=== PATIENT | female | born 1945 | race African-American/Black ===

== ENCOUNTER 2019-09-13 11:46 | Emergency (ER) | payer OTHER ==
[~2019-09-13] VITALS: Ht 165.1 cm; Wt 108.9 kg
[2019-09-13] MEDS ORDERED: NORVASC5 MG PO (11:53)
[2019-09-13] MEDS ORDERED: HYDROXYZINE HCL25 M2 PO (11:54)
[2019-09-13] MEDS ORDERED: LISINOPRIL-HCT1 EAC2 PO (11:54)
[2019-09-13] MEDS ORDERED: PREDNISONE 20 M20 M1 PO (11:55)
[2019-09-13] MEDS ORDERED: TRAMADOL 50 MG50 MG PO (11:55)
[2019-09-13] MEDS ORDERED: ZYRTEC10 M2 PO (12:32)
[2019-09-13] MEDS ORDERED: PREDNISONE 20 M20 MG PO (12:32)
[2019-09-13] MEDS ORDERED: ZANTAC 150MG T150 M1 PO (12:32)
[2019-09-13 12:50] VITALS: BP 129/81
== END 2019-09-13 12:50 | disposition home or self-care (01) ==
LOC: ER 11:46
DX: L27.0 Generalized skin eruption due to drugs and medicaments taken internally (principal); T50.995A Adverse effect of other drugs, medicaments and biological substances, initial encounter; I10 Essential (primary) hypertension; Y92.89 Other specified places as the place of occurrence of the external cause

== ENCOUNTER 2020-10-07 20:09 | Inpatient (IN) | payer OTHER ==
[~2020-10-07] VITALS: Ht 165.1 cm; Wt 103.4 kg
[~2020-10-07 20:09] MED LIST: HYDROXYZINE HCL25 M2 PO; LISINOPRIL-HCT1 EAC2 PO; NORVASC5 MG PO; PREDNISONE 20 M20 M1 PO; PREDNISONE 20 M20 MG PO; TRAMADOL 50 MG50 MG PO; ZANTAC 150MG T150 M1 PO; ZYRTEC10 M2 PO
[2020-10-07 20:10] VITALS: BP 149/103
[2020-10-07 21:15] LABS: ABSOLUTE NEUTROPHILS 1.5 thou/uL (1.4-8.2); BASOPHILS 0.5 % (0.0-2.0); EOSINOPHILS 0.1 % (0.0-3.0); HEMATOCRIT 41.5 % (37.0-47.0); HEMOGLOBIN 14.1 gm/dL (12.0-15.0); LYMPHOCYTES 38.8 % (24.0-44.0); MCHC 33.9 g/dL (28.0-37.0); MCV 88.5 fL (80.0-100.0); PLATELET COUNT 175 thou/uL (150-400); POLYS 49.6 % (36.0-66.0); RBC 4.69 mil/uL (4.20-5.00); RDW 14.7 % (10.5-14.5); WBC 3.1 thou/uL (4.0-11.0)
[2020-10-07 21:17] LABS: BE(vivo) 0.8 mmol/L (-2 to +3); HCO3 23.3 mmol/L (22.0-26.0); PCO2 31.3 mmHg (35.0-45.0); PO2 78.6 mmHg (80.0-100.0); pH 7.489 (7.360-7.450); sO2 96.6 % (92.0-98.0)
[2020-10-07 21:39] LABS: ALBUMIN 3.5 g/dL (3.4-5.0); ANION GAP 10 mmol/L (7-16); CALCIUM 8.9 mg/dL (8.5-10.1); CHLORIDE 97 mmol/L (98-107); CO2 27 mmol/L (21-32); CREATININE 1.1 mg/dL (0.6-1.0); GLUCOSE 108 mg/dL (74-106); SGOT 58 U/L (15-37); SGPT 79 U/L (14-59); SODIUM 134 mmol/L (136-145); TOTAL BILIRUBIN 0.5 mg/dL (0.2-1.0); TOTAL PROTEIN 8.2 g/dL (6.4-8.2); TROPONIN-I <0.06 ng/mL (<0.06)
[2020-10-07 21:41] LABS: POTASSIUM 2.8 mmol/L (3.5-5.1)
[2020-10-07 21:47] LABS: BUN 17 mg/dL (7-18)
[2020-10-07 22:55] VITALS: BP 138/84
[2020-10-07 23:00] VITALS: BP 138/84
[2020-10-07 23:29] VITALS: BP 141/57
--- NOTE | 2020-10-08 00:39 | NUR ---
PT ADMITTED FROM HOME THROUGH ED. PT REPORTED HAVING RECENT SINUS PROBLEMS AND INCREASING HER GREEN TEA INTAKE, THIS IS WHAT SHE THINKS DECREASED HER POTASSIUM. LUNGS DIMINISHED IN THE BASES. PT REPORTS INCREASE IN SOA AND FEVER. O2 PER NC 3L, PT USING AT HS, AT HOME USES CPAP. PT TESTED FOR COVID IN ED. PT DENIES RECENT EXPOSURE TO COVID. PT STATED SHE HAS HAD THE FLU AND PNEUMONIA VACCINE SO SHE DOES NOT UNDERSTAND HOW SHE CAN HAVE PNEUMONIA. 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 PT QUIT SMOKING TWO YEARS AGO. PT IS INDEPENDENT WITH AMBULATION, PT EDUCATED TO CALL FOR ASSISTANCE WITH IV POLE.
--- NOTE | 2020-10-08 00:45 | NUR ---
PT REPORTS IV POTASSIUM BURNING, RATE SIGNIFICANTLY DECREASED SO THAT PT IS COMFORTABLE.
--- NOTE | 2020-10-08 03:47 | NUR ---
PTS COVID TEST IS NEGATIVE, PROVIDER AND MEDICAL ONCOLOGIST NOTIFIED. PT WILL BE NOTIFIED WHEN SHE AWAKENS.
[2020-10-08 04:21] VITALS: BP 113/83
[2020-10-08 05:23] LABS: HEMATOCRIT 41.4 % (37.0-47.0); HEMOGLOBIN 13.8 gm/dL (12.0-15.0); MCH 30.1 pg (26.0-34.0); MCHC 33.3 g/dL (28.0-37.0); MCV 90.3 fL (80.0-100.0); RBC 4.59 mil/uL (4.20-5.00); WBC 2.1 thou/uL (4.0-11.0)
[2020-10-08 05:40] LABS: CALCIUM 8.5 mg/dL (8.5-10.1); CREATININE 1.2 mg/dL (0.6-1.0); POTASSIUM 3.2 mmol/L (3.5-5.1)
[2020-10-08 07:15] VITALS: BP 126/79
[2020-10-08 08:58] LABS: URINE BILIRUBIN NEGATIVE (Negative); URINE BLOOD NEGATIVE (Negative); URINE CLARITY CLEAR; URINE COLOR YELLOW; URINE GLUCOSE-RANDOM* NEGATIVE (Negative); URINE KETONES TRACE (Negative); URINE LEUKOCYTES-REFLEX NEGATIVE (Negative); URINE NITRITE-REFLEX NEGATIVE (Negative); URINE PROTEIN (DIPSTICK) NEGATIVE (Negative); URINE SPECIFIC GRAVITY >= 1.030 (1.005-1.035); URINE UROBILINOGEN 0.2 E.U./dl (0.2-1.0)
[2020-10-08 15:33] VITALS: BP 140/83
--- NOTE | 2020-10-08 17:10 | NUR ---
Patient transferred from [facility] this afternoon; transferred to bed safely. A+Ox4. On room air during daytime at O2 at 3lpm via nasal cannula at HS. On telemetry; no complains and signs of chest pain, crushing sensation and heaviness. On heart healthy diet- tolerating well; no nausea, no vomiting and no abdominal pain noted. Continent of bowel and bladder, able to go to the toilet with standby assist. With SL at L AC- intact. No complains of pain made during assessment. Assisted in ADLs. Pt complained of headache- PRN medication given as prescribed. Checked patient's potassium today 3.2- Dr Wen informed, for onetime PO potassium correction, no need for repeat lab today. To continue monitoring patient.
--- NOTE | 2020-10-09 01:58 | NUR ---
VSS-AFEBRILE. LUNGS CLEAR-ROOM AIR. RESTED WELL THROUGH NIGHT WITH CPAP IN PLACE. NO C/O PAIN. OOB AD WARNER-STEADY ON FEET. CALLS APPROPRIATELY FOR ANY NEEDED ASSISTANCE.
[2020-10-09 03:43] VITALS: BP 128/77
[2020-10-09 08:39] VITALS: BP 127/77
[2020-10-09 10:05] LABS: CALCIUM 8.6 mg/dL (8.5-10.1); CREATININE 1.1 mg/dL (0.6-1.0); POTASSIUM 4.1 mmol/L (3.5-5.1)
[2020-10-09 10:06] LABS: MAGNESIUM 2.5 mg/dL (1.8-2.4)
[2020-10-09 11:02] LABS: HEMATOCRIT 40.2 % (37.0-47.0); HEMOGLOBIN 13.2 gm/dL (12.0-15.0); MCH 29.9 pg (26.0-34.0); MCHC 32.8 g/dL (28.0-37.0); MCV 91.2 fL (80.0-100.0); RBC 4.41 mil/uL (4.20-5.00); RDW 15.2 % (10.5-14.5); WBC 4.6 thou/uL (4.0-11.0)
--- NOTE | 2020-10-09 15:38 | NUR ---
ASSUMED CARE OF PATIENT AFTER REPORT. ASSESSMENT CHARTED. MEDS ADMINISTERED PER EMAR. VSS. PATIENT IS A&OX4 AND MAKES NEEDS KNOWN. DENIED PAIN AT TIME OF ASSESSMENT. PATIENT REQUESTED TO SHOWER TODAY. SET UP W SUPERVISION AND TOLERATED WELL. REMAINS ON ROOM AIR. LUNGS REMAIN CLEAR. PATIENT DID HAVE AN EPISODE OF ANXIETY/CRYING D/T [facility] ALTERCATION IN THE EMERGENCY DEPARTMENT GREETING STATION. [facility] WAS ENTERED IN 1 AND SOLE DESIGNATED VISITOR BY THIS NURSE AND WAS NOT YET ON PRINTED LIST FROM THIS A.M. PUBLIC SAFETY ARRIVED AND SPOKE TO PATIENT WHICH INDUCED ANXIETY AND CRYING. PATIENT APPEARING TO MAKE MEDICAL PROGRESS. FALL PRECAUTIONS IN PLACE. WILL CONTINUE TO MONITOR
[2020-10-09 20:33] VITALS: BP 139/88
--- NOTE | 2020-10-10 04:23 | NUR ---
ASSUMED CARE OF PT AT 1900HRS. PT AOX4 AND LETS NEEDS BE KNOWN. PT IS UP AD WARNER. ABX TREATMENT CONTINUED. OT SUPPOSITORY LAXATIVE GIVEN AND [place] HAD A BM. ASSESSMENT CHARTED. PT RAN SR ON TELE. PT DENIED PAIN OR NAUSEA. ASSESSMENT CHARTED. PT WAS ABLE TO GET COMFORTABLE AND SLEEP PART OF THE SHIFT. VSS AND NO S/S OF ACUTE DISTRESS. WILL CONTINUE TO MONITOR.
[2020-10-10 05:12] LABS: HEMATOCRIT 41.2 % (37.0-47.0); HEMOGLOBIN 13.5 gm/dL (12.0-15.0); MCH 29.5 pg (26.0-34.0); MCHC 32.6 g/dL (28.0-37.0); MCV 90.5 fL (80.0-100.0); RBC 4.56 mil/uL (4.20-5.00); RDW 15.5 % (10.5-14.5); WBC 8.2 thou/uL (4.0-11.0)
[2020-10-10 05:21] LABS: CALCIUM 8.4 mg/dL (8.5-10.1); CREATININE 1.1 mg/dL (0.6-1.0); MAGNESIUM 1.9 mg/dL (1.8-2.4); POTASSIUM 3.5 mmol/L (3.5-5.1)
--- NOTE | 2020-10-10 07:23 | EKG ---
[address] [place] [address] ELECTROCARDIOGRAM REPORT Name: LUISANA BAUTISTA Room #: 459-P ADM IN M.R.#: [id number] Admission: 10/07/20 Attend Phys: Joshua Quiles MD Discharge: Date of : 47 Report #: [id number] [facility] ED Test Date: 2020-10-07 Test Time: 20:44:04 Pat Name: LUISANA BAUTISTA Department: Room: 45 Gender: F Dairy Management Specialist: MPAGARY : [id number] Requested By: Aimee Melo Order Number: [id number] MD: Mauricio Pedroza Measurements Intervals [place] Rate: 94 P: 63 WA: 158 QRS: -5 QRSD: 86 T: 30 QT: 354 QTc: 443 Interpretive Statements Sinus rhythm Abnormal R-wave progression, late transition Nonspecific ST segment abnormality Baseline wander in lead(s) I,III,aVR,aVL,aVF,V3,V4 Compared to ECG 01/02/2008 23:19:42 Fusion complex(es) no longer present Electronically Signed On 10-10-2020 7:23:27 [employer] CHAIR by Mauricio Pedroza [email or web address] <ELECTRONICALLY SIGNED> By: Mauricio Pedroza MD, [facility] 10/10/20722 43 43 Mauricio Pedroza MD, [facility] /EPI
--- NOTE | 2020-10-10 10:00 | NUR ---
chart review. cm visited with marlene at bedside. cm cont to wear face mask and shield at visit. marlene a & o x 3 pleasant and able to make her needs know. intro to cm and dcp. she possible going for aspiration today. she reported " live alone in apartment. [address] in [place]. [address] floor. no step to enter or inside. there is an elevator. independent when feeling ok. have cpap, manage own medication. still drive, try not to drive on highway if possible. been to [facility] rehab long while ago. have 1st access through medicaid weekly."/marlene. agreeable to hh if needed. will cont following as needed for dc needs.
--- NOTE | 2020-10-10 18:08 | NUR ---
ASSUMED CARE OF PATIENT AT SHIFT CHANGE. ASSESSMENT CHARTED. MEDICATION ADMINISTERED PER EMAR. BP ELEVATED BUT STABLIZED AFTER BP MEDS ADMINSTERED. PATIENT IS A&OX4 AND MAKES NEEDS KNOWN. C/O NAUSEA AND DIZZINESS. LUNG SOUNDS W SOME WHEEXING AGAIN. PROVIDER D/C'd STEROIDS TO REDUCE SIDE EFFECTS. PATIENT PROVIDED PRINTED INFO ON ZINC SUPPLEMENT WHICH COULD POSSIBLY BE CAUSING NAUSEA. PATIENT VOICES STRESS INCONTINENCE. HR TACHY THIS SHIFT, APPEARING ANXIOUS W TREMORS. PROVIDER NOTIFIED. SPOKE TO DTR THIS DAY AND PROVIDED UPDATES. PATIENT EDUCATED ON FALL PRECAUTIONS. WILL CONTINUE TO MONITOR AND ENDORSE TO NOC RN
[2020-10-10 19:53] VITALS: BP 131/75
--- NOTE | 2020-10-11 02:37 | NUR ---
PT CARE ASSUMED WITH PT IN CHAIR RESTING.PT IS A/O X4.PT IS UP WITH STANDBY ASSIST BECAUSE OF OCCASIONAL DIZZINESS.PT IS ON 2L O2 AND USES A CPAP AT NIGHT.PT DAUGHTER CALLED FOR UPDATES AND ALSO CALLED PT TO SPEAK WITH HER.PT WAS TAKEN DOWN TO RADIOLOGY FOR XRAY.PT ALSO ON BREATHING TREATMENT.PT HAD TEMPERATURE OF 102.0 AND WAS GIVEN TYLENOL WITH RELIEF TO 98.3.PT SAYS SHE FEELS MUCH BETTER .WILL CONTINUE TO MONITOR
[2020-10-11 05:43] LABS: MCH 29.9 pg (26.0-34.0); MCHC 33.4 g/dL (28.0-37.0); MCV 89.7 fL (80.0-100.0); RBC 4.35 mil/uL (4.20-5.00); RDW 15.5 % (10.5-14.5); WBC 6.4 thou/uL (4.0-11.0)
[2020-10-11 06:18] LABS: CALCIUM 8.4 mg/dL (8.5-10.1); CREATININE 1.2 mg/dL (0.6-1.0); MAGNESIUM 2.1 mg/dL (1.8-2.4); POTASSIUM 3.6 mmol/L (3.5-5.1)
[2020-10-11 06:53] LABS: URINE BILIRUBIN NEGATIVE (Negative); URINE BLOOD NEGATIVE (Negative); URINE CLARITY CLEAR; URINE COLOR YELLOW; URINE GLUCOSE-RANDOM* NEGATIVE (Negative); URINE KETONES NEGATIVE (Negative); URINE LEUKOCYTES NEGATIVE (Negative); URINE NITRITE NEGATIVE (Negative); URINE PROTEIN (DIPSTICK) TRACE (Negative); URINE SPECIFIC GRAVITY >= 1.030 (1.005-1.035); URINE UROBILINOGEN 0.2 E.U./dl (0.2-1.0)
[2020-10-11 08:38] VITALS: BP 135/90
--- NOTE | 2020-10-11 15:15 | NUR ---
Temperature 99.8, Dr. Hagan has been reported to. will check BP soon.
[2020-10-11 15:57] VITALS: BP 152/90
[2020-10-12 00:48] VITALS: BP 108/71
--- NOTE | 2020-10-12 02:52 | NUR ---
ASSUMED PT CARE AT SHIFT CHANGE. PT IS A&OX4. PT'S O2 IS 89 WHILE ON OXYGEN. TURNED UP THE O2 FOR COMFORT. RE CHECKED IN THE 0000 HOUR. VSS. PT DOES SHOW SIGNS OF SHORTNESS OF BREATH WHEN WALKING. PT DENIES AND PAIN AND DENIES THAT SHE IS STRUGLING TO BREATH. PT DENIES N/V/D. PT IS CURRENTLY SLEEPING. HOURLY ROUNDING DONE. WILL CONTINUE TO MONITOR.
[2020-10-12 05:46] LABS: BASOPHILS 0.5 % (0.0-2.0); HEMOGLOBIN 12.3 gm/dL (12.0-15.0)
[2020-10-12 05:50] LABS: ABSOLUTE NEUTROPHILS 4.8 thou/uL (1.4-8.2); EOSINOPHILS 0.8 % (0.0-3.0); HEMATOCRIT 36.9 % (37.0-47.0); LYMPHOCYTES 12.2 % (24.0-44.0); MCHC 33.3 g/dL (28.0-37.0); MCV 90.2 fL (80.0-100.0); MONOCYTES 4.8 % (1.0-8.0); PLATELET COUNT 168 thou/uL (150-400); POLYS 81.7 % (36.0-66.0); RBC 4.09 mil/uL (4.20-5.00); RDW 15.4 % (10.5-14.5); WBC 7.6 thou/uL (4.0-11.0)
[2020-10-12 05:55] LABS: CALCIUM 8.2 mg/dL (8.5-10.1); CREATININE 1.2 mg/dL (0.6-1.0); MAGNESIUM 2.2 mg/dL (1.8-2.4); POTASSIUM 3.8 mmol/L (3.5-5.1)
[2020-10-12 07:33] VITALS: BP 119/74
[2020-10-12 15:56] VITALS: BP 116/72
--- NOTE | 2020-10-12 16:12 | NUR ---
PT IS PROGRESSING TOWARD GOAL OF DISCHARGE. PT IS ON 4L O2. 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 CM TO FOLLOW INDICATED WITH DC PLANNING.
[2020-10-12 16:36] LABS: ALBUMIN 2.5 g/dL (3.4-5.0); DIRECT BILIRUBIN 0.1 mg/dL (<0.1-0.2); TOTAL BILIRUBIN 0.3 mg/dL (0.2-1.0); TOTAL PROTEIN 6.5 g/dL (6.4-8.2)
--- NOTE | 2020-10-12 19:06 | NUR ---
Patient claimed she urinated once in the bathroom, the staff asked the patient to urinated in the bed commode, so her I& O can be monitored, the patient agreed. will pass this on to the night nurse. Patient claimed around noon that she felt better.
--- NOTE | 2020-10-12 19:41 | NUR ---
Patient asked for heart burn medication, will pass it on to the night nurse.
[2020-10-12 20:12] VITALS: BP 116/68
--- NOTE | 2020-10-13 04:09 | NUR ---
Pt. rested quietly at intervals during the night when checked on during frequent rounds. She took one sip of her gi cocktail for heartburn and then refused the rest. Scheduled pepcid given with relief of her heartburn. Po tylenol given for c/o headache (see emar) with relief noted. No c/o increased shortness of air. Tolerating c-pap at this time.
[2020-10-13 07:56] VITALS: BP 140/84
--- NOTE | 2020-10-13 11:52 | HC ---
[facility] [place] [address] [place] [address] CONSULTATION Name: LUISANA BAUTISTA Room #: 459-P ADM IN M.R.#: [id number] Admission: 10/07/20 Attend Phys: Ronny Wen MD Discharge: Date of : 47 Report #: [id number] THIS REPORT FOR: cc: Candace Thomas,Candace Fraire,Lars Parson MD ~ DATE OF SERVICE: 10/12/2020 INFECTIOUS DISEASE CONSULTATION ATTENDING PHYSICIAN: Dr. Wen. REASON FOR EVALUATION: Nonresolving pneumonia. HISTORY OF PRESENT ILLNESS: Chart reviewed, patient examined. This is a 74-year-old woman with history of hypertension, who presented to the Emergency Room on 10/07 with complaints of progressive dyspnea over the course of 48 hours prior with some fevers, chills, nausea, generalized myalgias, and had a nonproductive cough. Initial chest x-ray showed mild patchy medial bibasilar atelectasis, pneumonitis. She had a followup CT of the chest to rule out pulmonary embolus, did confirm mild cardiomegaly, peripheral interstitial opacities throughout both lungs. She was found to have negative COVID testing x 3. She was mildly leukopenic, this has improved. She has not been anemic. Platelet counts have been in the normal range. Influenza antigen testing was negative. Procalcitonin was less than 0.05. She empirically started on combination therapy with ceftriaxone and azithromycin. Currently, she is requiring supplemental oxygen 4 liters per nasal cannula, although she states she feels much improved over the course of the last 24 hours. Her encephalopathy has improved. She does continue to have some degree of activity, walking in the room and going to the bathroom, etc. Denies particular exposure history. ALLERGIES: None known. MEDICATIONS: Currently include levofloxacin, methylprednisolone, ipratropium and albuterol inhalers, guaifenesin, enoxaparin, lisinopril, amlodipine, ascorbic acid, famotidine, zinc, ondansetron as needed, and furosemide. PAST MEDICAL HISTORY: Includes hypertension, uses CPAP at night, obstructive sleep apnea, and history of shingles. SOCIAL HISTORY: Former smoker, occasional ethanol, no illicit drug use. FAMILY HISTORY: Noncontributory. [address] [address] CONSULTATION Name: LUISANA BAUTISTA Room #: [address] [place] [address] IN M.R.#: [id number] Admission: 10/07/20 Attend Phys: Ronny Wen MD Discharge: Date of : 47 Report #: [id number] REVIEW OF SYSTEMS: Otherwise, unremarkable. PHYSICAL EXAMINATION: GENERAL: She is alert, cooperative, appropriate, and in mild distress. VITAL SIGNS: Temperature 98.3, T-max overnight 99.2, pulse 94, respirations 18, and blood pressure 119/74. SKIN: Warm, dry, no rashes. HEENT: Normocephalic. Extraocular muscles are intact. Nasal cannula is in place. NECK: Supple. LUNGS: Somewhat diminished breath sounds. Few scattered crackles at the bases. HEART: Regular. I do not appreciate any murmur. ABDOMEN: Soft, nontender, nondistended. EXTREMITIES: No cyanosis. GENITOURINARY AND RECTAL: Deferred. LABORATORY DATA: CTA chest PE protocol, no evidence of PE, peripheral interstitial opacities, trace bilateral pleural effusion, no pneumothorax. ProBNP of 302. Electrolytes: Sodium 136, potassium 3, chloride 101, bicarbonate 25, anion gap of 10, BUN and creatinine 22 and 1.2, and glucose of 112. D-dimer is 1.38. CBC: White count of 7.6, H and H 12.3 and 36.9, and platelets of 168. Urinalysis is unremarkable. Sputum culture with growth of upper respiratory tract oswaldo. There is mildly elevated LFTs on admission. White count of 3.1 on admission, which is normalized. Coronavirus testing was negative on multiple occasions. ASSESSMENT: Pneumonitis, community-acquired, complicated by some suspect mild immune driven inflammatory changes. Continue current approach. She notes clinically feels better. Do additional diagnostic testing including some urinary antigen as well as some antibody testing, repeat liver function tests as well. Would consider noninfectious causes but as she is on corticosteroids, certainly ____ would expect resolution in the event of worsening, would consider adding doxycycline to cover additional atypicals. Discussed in detail with the patient. We will follow. Continue to monitor expectantly. Add incentive spirometry. Increase activity as allowed. <ELECTRONICALLY SIGNED> By: Lars Fraire MD 10/13/20 1152 [id number] Lars Fraire MD /nt
--- NOTE | 2020-10-13 15:24 | NUR ---
PT CONTINUES ON IV STEROIDS AND IV ABX. 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 CM FOLLOWING REGARDING DC PLANNING.
--- NOTE | 2020-10-13 16:50 | NUR ---
ASSUMED CARE OF PATIENT AT 0700. ASSESSMENT CHARTED. MEDICATIONS ADMINISTERED PER EMAR. VSS. PATIENT IS A&OX4 ON 4L NC. VOICES HEADACHE BUT REQUESTS TO REST INSTEAD OF MEDICATION MANAGEMEN. PATIENT RECIVED DOXYCYCLINE ON L FA BUT C/O LEAKING AROUND IV SITE. IV WAS DISCONTINUED. NEW IV ACCESS ON R WRIST; ABX RESUMED. PATIENT OOB W SBA AND SHOWERED INDEPENDENTLY. STATED THAT "WALKING AROUND WOULD HELP" WITH FEELING BETTER. NET PROGRAMMER ROUNDED ON PATIENT; SEE NOTES. APPETITE STILL PROBABLY INADEQUATE BUT IMPROVING. FALL PRECAUTIONS REMAIN IN PLACE. PATIENT ABLE TO VOICE NEEDS. WILL CONTINUE TO MONITOR AND FOLLOW PLAN OF CARE.
[2020-10-13 17:07] VITALS: BP 118/69
[2020-10-13 19:27] VITALS: BP 123/70
--- NOTE | 2020-10-14 03:27 | NUR ---
PT CARE ASSUMED WITH PT IN CHAIR RESTING.PT IS A/O X4.PT IS UP WITH STANDBY ASSIST TO THE RESTROOM OR BEDSIDE COMMODE.PT IS ON 4L OF O2 PER NC AND USES CPAP AT NIGHT.PT DENIED PAIN AND HAD NO TEMP OF THIS TIME.PT C/O NAUSEA WITH ZINC WHEN TAKEN IN THE MORNING ON AN EMPTY STOMACH.PT DENIED N/V.WILL CONTINUE TO MONITOR PER POC
[2020-10-14 07:00] VITALS: BP 121/67
--- NOTE | 2020-10-14 11:46 | NUR ---
Assess due length of stay. Admit with acute respiratory failure, pneumonia. Pt reports appetite has been down past week (<50%) but ate fairly well this morning and feels appetite is returning. Provided hospital menu and pt able to order own meals. Mild wt loss up to 6 lb which would suspect to cease. Does not like Ensure clear, will discontinue. Low nutrition risk
--- NOTE | 2020-10-14 14:45 | NUR ---
Assumed pt care this am, VS stable on 5L of O2 via NC 91% saturation noted, informed MD. Uses cpap at night, sputum collected. Daughter called Leidy for update from the MD number given to Dr. Martines. SOB lis noted on upon exertion. POC followed, no verbalizations of distress.
[2020-10-14 15:15] VITALS: BP 116/73
--- NOTE | 2020-10-14 15:52 | NUR ---
CARE TEAM INDICATED THAT PT IS SLOWLY PROGRESSING TOWARD GOAL OF DISCHARGE. PT CONTINUES ONM IV STEROIDS, IV ABX, AND O2 NEEDS HAVE INCREASED TO 5L. CARE TEAM INDICATED THAT PT WILL REMAIN HOSPITILIZED OVER THE WEEKEND. CM TO FOLLOW INDICATED WITH DC PLANNING.
[2020-10-14 20:20] VITALS: BP 140/82
--- NOTE | 2020-10-15 03:32 | NUR ---
PT CARE ASSUMED WITH PT IN CHAIR WATCHING TV.PT IS A/O X4.PT IS UP WITH STANDBY ASSIST TO THE RESTROOM OR BSC.PT IS ON 4L O2 VIA NC WITH SAT AT 91s.PT USES A CPAP AT NIGHT.WILL CONTINUE TO MONITOR
[2020-10-15 06:10] LABS: ABSOLUTE NEUTROPHILS 2.9 thou/uL (1.4-8.2); BASOPHILS 0.1 % (0.0-2.0); HEMATOCRIT 35.5 % (37.0-47.0); HEMOGLOBIN 11.8 gm/dL (12.0-15.0); LYMPHOCYTES 23.8 % (24.0-44.0); MCH 29.6 pg (26.0-34.0); MCHC 33.4 g/dL (28.0-37.0); MCV 88.7 fL (80.0-100.0); MONOCYTES 10.9 % (1.0-8.0); POLYS 65.2 % (36.0-66.0); RDW 15.1 % (10.5-14.5); WBC 4.4 thou/uL (4.0-11.0)
[2020-10-15 06:14] LABS: PLATELET COUNT 243 thou/uL (150-400)
[2020-10-15 06:43] LABS: ALBUMIN 2.5 g/dL (3.4-5.0); CALCIUM 8.5 mg/dL (8.5-10.1); CREATININE 0.8 mg/dL (0.6-1.0); MAGNESIUM 2.1 mg/dL (1.8-2.4); PHOSPHORUS 3.5 mg/dL (2.6-4.7); TOTAL BILIRUBIN 0.4 mg/dL (0.2-1.0); TOTAL PROTEIN 6.2 g/dL (6.4-8.2)
[2020-10-15 07:15] VITALS: BP 147/85
[2020-10-15 15:55] VITALS: BP 126/70
--- NOTE | 2020-10-15 17:13 | NUR ---
RN ASSUMED PT'S CARE AT 0700AM, PT IS A&OX3, PT IS ON O2 4L/MIN/NC, PT 'S VS ARE STABLE, PT IS CONTINUING IV ABX, PT GETS UP TO CHAIR , PT DENIES PAIN AND SOB AT THIS TIME.
--- NOTE | 2020-10-16 07:25 | NUR ---
VSS-AFEBRILE. LUNGS TIGHT, 4LNC. SOA WITH EXERTION. OOB AD WARNER-STEADY ON FEET. FALL PRECAUTIONS IN PLACE.
[2020-10-16 08:28] LABS: HEMATOCRIT 36.4 % (37.0-47.0); MCH 29.4 pg (26.0-34.0); MCV 89.3 fL (80.0-100.0); PLATELET COUNT 261 thou/uL (150-400); RBC 4.08 mil/uL (4.20-5.00); RDW 15.1 % (10.5-14.5); WBC 6.7 thou/uL (4.0-11.0)
[2020-10-16 08:30] VITALS: BP 133/75
[2020-10-16 09:05] LABS: CALCIUM 8.9 mg/dL (8.5-10.1); CREATININE 0.9 mg/dL (0.6-1.0); MAGNESIUM 1.9 mg/dL (1.8-2.4); PHOSPHORUS 3.4 mg/dL (2.6-4.7); POTASSIUM 3.6 mmol/L (3.5-5.1)
[2020-10-16 09:57] LABS: BE(vivo) 1.4 mmol/L (-2 to +3); HCO3 23.7 mmol/L (22.0-26.0); PCO2 30.4 mmHg (35.0-45.0); PO2 87.9 mmHg (80.0-100.0); pH 7.509 (7.360-7.450); sO2 97.5 % (92.0-98.0)
[2020-10-16 10:32] LABS: ABSOLUTE NEUTROPHILS 4.5 thou/uL (1.4-8.2); ANISOCYTOSIS SLIGHT; METAMYELOCYTES 1 %; MYELOCYTES 1 %
--- NOTE | 2020-10-16 11:17 | NUR ---
PATIENT CONCERNED ABOUT GETTING A SHOWER AND CALLED DAUGHTER. INFORMED DAUGHTER, LILLI BAUTISTA THAT OUR TRACK OILER WILL GET TO HER SOON POSSIBLE AND THAT BOTH I AND TRACK OILER HAVE TALKED WITH PATIENT ABOUT SHOWER. I ALSO ADDED THAT WE HAD A TECH CALL IN AND THAT IT MAY BE THIS AFTERNOON BEFORE WE CAN GET TO PATIENT. I APOLOGIZED AND STATED WERE DOING THE BEST WE CAN. DAUGHTER STATED HOW UNHAPPY SHE WAS.
--- NOTE | 2020-10-16 11:32 | NUR ---
PATIENT A&OX4, VSS, DENIES PAIN. PATIENT ON 4L OXYGEH, SCHEDULED BREATHING TREATMENS.
[2020-10-16 15:37] VITALS: BP 132/80
[2020-10-16 20:00] VITALS: BP 149/90
--- NOTE | 2020-10-17 02:37 | NUR ---
CARE ASSUMED 1900. PT ALERT AND ORIENTED. VITALS STABLE. REPORTS NO HAVING HAD A BOWEL MOVEMENT IN 5 DAYS. TOOL MAKER SET UP AND CHARGER NOTIFIED FOR STOOL SOFTER AND MIRALAX PRN. LEFT FOREARM INFILTRATE, NEW IV STARTED IN THE RIGHT FOREARM. LOZENGES GIVEN FOR COUGH. PT C/O TO FAMILY MEMBER THAT SHE HAS NOT BEEN RECIEVING DINNER. WILL COMMUNICATE TO DAY SHIFT. NO OTHER CONCERNS. WILL CONTINUE TO MONITOR.
[2020-10-17 05:46] LABS: HEMATOCRIT 35.1 % (37.0-47.0); HEMOGLOBIN 11.6 gm/dL (12.0-15.0); MCH 29.8 pg (26.0-34.0); MCV 90.3 fL (80.0-100.0); PLATELET COUNT 263 thou/uL (150-400); RBC 3.89 mil/uL (4.20-5.00); RDW 15.2 % (10.5-14.5); WBC 6.5 thou/uL (4.0-11.0)
[2020-10-17 06:09] LABS: ALBUMIN 2.5 g/dL (3.4-5.0); CALCIUM 8.5 mg/dL (8.5-10.1); CREATININE 0.9 mg/dL (0.6-1.0); MAGNESIUM 1.9 mg/dL (1.8-2.4); PHOSPHORUS 3.5 mg/dL (2.6-4.7); TOTAL BILIRUBIN 0.4 mg/dL (0.2-1.0); TOTAL PROTEIN 6.6 g/dL (6.4-8.2)
[2020-10-17 10:16] VITALS: BP 135/77
[2020-10-17 10:22] LABS: ABSOLUTE NEUTROPHILS 4.1 thou/uL (1.4-8.2); METAMYELOCYTES 1 %
[2020-10-17 10:23] LABS: ANISOCYTOSIS SLIGHT; MYELOCYTES 1 %
--- NOTE | 2020-10-17 11:18 | 2DMMODE ---
[facility] [place] [address] 2 D/M-MODE ECHOCARDIOGRAM Name: LUISANA BAUTISTA Room #: 459-P ADM IN M.R.#: [id number] Admission: 10/07/20 Attend Phys: Ronny Wen MD Discharge: Date of : 47 Report #: [id number] THIS REPORT FOR: cc: Candace Thomas Carol ARNP Lammoglia,Michael Phoenix MD ~ APPROVED REPORT Study performed: 10/17/2020 10:29:57 EXAM: Comprehensive 2D, Doppler, and color-flow Echocardiogram Patient Location: Bedside Room #: 459 Status: routine BSA: 2.09 HR: 87 bpm BP: 149/90 mmHg Rhythm: NSR Other Information Study Quality: Good Indications Persistent bilateral infiltrates, COPD, LV function. Hx: HTN 2D Dimensions RVDd: 38.69 mm IVSd: 14.12 (7-11mm) LVOT Diam: 20.69 (18-24mm) LVDd: 46.26 mm PWd: 11.43 (7-11mm) Ascending Ao: 33.84 (22-36mm) LVDs: 28.10 (25-40mm) Left Atrium: 35.97 (27-40mm) Aortic Root: 33.68 mm Volumes Left Atrial Volume (Systole) Single Plane 4CH: 62.74 mL Single Plane 2CH: 69.60 mL LA ESV Index: 35.00 mL/m2 Aortic Valve AoV Peak Efrain.: 2.53 m/s AO Peak Gr.: 25.68 mmHg LVOT Max P.64 mmHg AO Mean Gr.: 11.[address] [facility] [address] [place] [address] 2 D/M-MODE ECHOCARDIOGRAM Name: LUISANA BAUTISTA Room #: 459-P [facility] IN .R.#: [id number] Admission: 10/07/20 Attend Phys: Ronny Wen, Discharge: Date of : 47 Report #: [id number] AO V2 Mean: 1.52 m/s LVOT Max V: 1.29 m/s AO V2 VTI: 40.44 cm ANITRA Vmax: 1.71 cm2 Mitral Valve E/A Ratio: 0.7 MV Decel. Time: 141.36 ms MV E Max Efrain.: 0.76 m/s MV A Efrain.: 1.04 m/s MV PHT: 40.99 ms IVRT: 71.51 ms Pulmonary Valve PV Peak Efrain.: 1.13 m/s PV Peak Gr.: 5.13 mmHg Pulmonary Vein P Vein S: 0.50 m/s P Vein A: 0.42 m/s P Vein D: 0.49 m/s P Vein A Dur.: 117.6 msec P Vein S/D Ratio: 1.02 Tricuspid Valve TR Peak Efrain.: 2.71 m/s TR Peak Gr.: 29.29 mmHg Left Ventricle The left ventricle is normal size. There is normal LV segmental wall motion. Mild septal hypertrophy is present. Left ventricular systolic function is normal. LVEF is 60%. Mild diastolic dysfunction is present (impaired relaxation pattern). Right Ventricle The right ventricle is normal size. The right ventricular systolic function is normal. Atria Left atrium measures within normal range volume may be at the upper limits of normal to mildly dilated Right atrium mildly dilated Aortic Valve The aortic valve is normal in structure; mildly calcified. No aortic regurgitation is present. There is mild valvular aortic stenosis. Calculated aortic valve area is 1.7 cm2 with maximum pressure gradient of 26 mmHg and mean pressure gradient of [address] [facility] [address] [place] [address] 2 D/M-MODE ECHOCARDIOGRAM Name: LUSIANA BAUTISTA Room #: 459-P [facility] IN .R.#: [id number] Admission: 10/07/20 Attend Phys: Ronny Wen, Discharge: Date of : 47 Report #: [id number] The mitral valve is normal in structure. Mild mitral annular calcification. There is no mitral valve regurgitation noted. No evidence of mitral valve stenosis. Tricuspid Valve The tricuspid valve is normal in structure. Mild tricuspid regurgitation. Estimated PAP is 29mmHg plus the right atrial pressure. Pulmonic Valve Pulmonic valve is not well visualized. Great Vessels The aortic root is normal in size. The ascending aorta is normal in size. IVC is not well visualized. Pericardium There is no pericardial effusion. <Conclusion> The left ventricle is normal size. LVEF is 60%. Left atrium measures within normal range volume may be at the upper limits of normal to mildly dilated Right atrium mildly dilated The aortic valve is normal in structure; mildly calcified. There is mild valvular aortic stenosis. Calculated aortic valve area is 1.7 cm2 with maximum pressure gradient of 26 mmHg and mean pressure gradient of 11 mmHg. No aortic regurgitation is present. The mitral valve is normal in structure. Mild mitral annular calcification. The tricuspid valve is normal in structure. Mild tricuspid regurgitation. Estimated PAP is 29mmHg plus the right atrial pressure. There is no pericardial effusion. <ELECTRONICALLY SIGNED> By: Michael Ley MD 10/17/20 1118 [id number] [id number] Michael Ley MD /INF
--- NOTE | 2020-10-17 13:47 | NUR ---
Received awake on bed. On nothing per orem- pt informed and aware. A+Ox4. On telemetry; no complains and signs of chest pain, crushing sensation and heaviness. On O2 via nasal cannula during daytime and CPAP at HS. Assisted in ADLs. No nausea, no vomiting and no abdominal pain noted. Continent of bowel and bladder, able to go to the toilet with standby assist. Falls bundle in place. With SL at R hand- on IV antibiotics and IV steroids. Scheduled for bronchoscopy- pt brought down during shift change. For Echo today. Pt back to room s/p bronchoscopy; back to room safely. Due medications missed this morning given; able to tolerate breakfast- no nausea, no vomiting and no abdominal pain noted. Pt seen and examined by Dr Fraire this AM; seen by Dr Quiles as well- a/w bronchoscopy results, a/w physician's further plans. To continue monitoring patient. Pt's IV infiltrated, re-sited by IV nurse.
--- NOTE | 2020-10-17 15:02 | NUR ---
SW reviewed chart and spoke with nursing. Pt had bronch earlier today. Pt remains on O2. Pt was not on O2 prior to admission. Therapy has discharged pt from their services. Pt resides [facility] in a [facility] complex. ANDREW is following to assist as needed with discharge planning.
[2020-10-17 15:55] VITALS: BP 120/73
[2020-10-17 20:16] VITALS: BP 130/88
[2020-10-18 04:55] VITALS: BP 134/95
--- NOTE | 2020-10-18 06:45 | NUR ---
Pt. slept fair during the night in between using bathroom/commode. She slept with CPAP on. Still gets short of breath with exertion though she stated she definitely feels a lot better after bronchoscopy done. Ambulates to the bathroom with steady gait. Fall risk score is low , bed alarm turned off. Denies any discomfort though she shared sadness from loss of his brother yesterday.Emotional support given. Making some progress towards care plan goals.
[2020-10-18 08:26] VITALS: BP 134/75
--- NOTE | 2020-10-18 11:40 | NUR ---
Received awake on bed. Due medications given as prescribed, able to swallow meds w/o difficulty. On O2 at 2lpm via nasal cannula; CPAP at HS. On MS, not on telemetry; no complains and signs of chest pain, crushing sensation and heaviness. Assisted in ADLs. Vital signs stable. On heart healthy diet- tolerating well; no nausea, no vomiting and no abdominal pain. Continent of bowel and bladder, able to use bedside commode and go to the toilet with standby assist and gait belt. With SL at R FA. To continue monitoring patient.
--- NOTE | 2020-10-18 14:57 | NUR ---
CARE TEAM INDICATED THAT PT WILL LIKELY BE MEDICALLY STABLE TO DISCHARGE HOME TOMORROW. PT IS NOW ON 2L O2. PT CONTINUES ON IV ABX AND HAD BRONCHOSCOPY YESTERDAY. CM TO FOLLOW INDICATED WITH DC PLANNING.
[2020-10-18 16:55] VITALS: BP 134/95
[2020-10-18 19:30] VITALS: BP 122/76
--- NOTE | 2020-10-19 04:36 | NUR ---
VSS-AFBRILE. NO COMPLAINTS OF PAIN. RESTED WELL THROUGH NIGHT WITH CPAP-2L IN PLACE. OOB AD WARNER-STEADY ON FEET. LUNGS CLEAR WITH OCCASIONAL WHEEZES IN BILATERAL LOWER LOBES. CALLS APPROPRIATELY FOR ANY NEEDED ASSISTANCE.
[2020-10-19 07:08] VITALS: BP 139/82
[2020-10-19] MEDS ORDERED: DOXYCYCLINE 10100 M2 PO (11:19)
[2020-10-19] MEDS ORDERED: MUCINEX600 MG PO (11:19)
[2020-10-19 12:58] VITALS: BP 139/88
[2020-10-19] MEDS ORDERED: ZOFRAN ODT4 MG PO (13:10)
--- NOTE | 2020-10-19 15:11 | NUR ---
ASSUMED CARE OF PATIENT AT SHIFT CHANGE. ASSESSMENT CHARTED. MEDICATIONS ADMINISTERED PER EMAR. VSS. PATIENT IS A&OX4 AND MAKES NEEDS KNOWN. PATIENT C/O NAUSEA EARLY THIS A.M. IV DISCONTINUED; PATIENT GIVEN SUBLINGUAL ZOFRAN. PATIENT HAD A EXERCISE PULSE OXIMETRY DONE AND WAS DETERMINED TO NEED O2 AT HOME. CM WORKING W PATIENT REGARDING HH AND DME FOR DISCHARGE PLANNING. DISCHARGE ORDERS ARE IN; WAITING FOR FINALIZATION. WILL CONTINUE TO MONITOR AND FOLLOW PLAN OF CARE.
[2020-10-19 15:17] VITALS: BP 139/88
--- NOTE | 2020-10-19 15:25 | NUR ---
FAXED REFERRAL TO [facility] SPOKE WITH RENA IN INTAKE SHE CAN ACCEPT FAXED DC ORDERS/SUMMARY RECEIVED CONFIRMATION [facility] WILL CALL TO ARRANGE VISITS.
--- NOTE | 2020-10-19 15:42 | NUR ---
CARE TEAM INDICATED THAT PT IS MEDICALLY STABLE TO DISCHARGE HOME THIS DAY. EX OX TESTING DONE. PT NEEDED 3L AT REST AND 4L WITH ACTIVITY. PT ASKED THAT ORDER BE SENT TO [facility] SHE HAS HER CPAP THROUGH THEM. THEY ARE ABLE TO PROVIDE SERVICE AND PORTABLE TANK WAS DELIVERED PRIOR TO DC. [facility] CAN ACCEPT PT FOR HH SERVICES UPON DC. CM PROVIDED PT WITH A LIST OF PCP'S HERE AT HOSPITAL FOR HER TO LOOK INTO ESTABLISH CARES IN THE FUTURE. NO OTHER CM INTERVENTION INDICATED. CASE CLOSED.
--- NOTE | 2020-10-19 16:26 | NUR ---
FAXED DC ORDERSS/SUMMARY TO [facility] HH SPOKE WITH RENA IN INTAKE SHE RECEIVED ORDERS AND WILL ARRANGE VISITS WITH PT.
--- NOTE | 2020-10-19 17:06 | PATH ---
[facility] [address] [place] [address] PATHOLOGY RPT PROCEDURE Name: LUISANA BAUTISTA Room #: 459-P DIS IN M.R.#: [id number] Admission: 10/07/20 Date of : 47 Discharge: 10/19/20 Report #: [id number] Path Case #: [id number] Note [facility] Accession Number: [id number] TESTS RESULT FLAG UNITS REF RANGE LAB Clinician Provided Cytology Information No. of containers..01 Other (Miscellaneous) Source: 01 LLL BAL DIAGNOSIS: 01 LLL BAL NEGATIVE FOR MALIGNANT CELLS. NORMAL BRONCHIAL CELLS ARE PRESENT. REACTIVE SQUAMOUS CELLS ARE PRESENT. PULMONARY MACROPHAGES (DUST CELLS) ARE PRESENT. Signed out by: 01 Kobe Garnett MD, Pathologist NPI- [id number] Performed by: Nuvia Pacheco, Addictions Counselor ([facility]) Gross description: 01 15ML, THICK GRIFFIN, 1 TP /LCS 10/18/2020 1643 Local FLAG LEGEND: L-Low Normal,H-High Normal,LL-Alert Low,HH-Alert High <-Panic Low,>-Panic High,A-Abnormal,AA-Critical Abnormal Performed at: [address] [place] [address] Kobe Garnett MD, Specimen Comment: A courtesy copy of this report has been sent to [phone] Specimen Comment: [phone], Specimen Comment: Report sent to ,DR DRAKE / DR THORPE Specimen Comment: A duplicate report has been generated due to demographic updates. Performed at: [address] [place] [address] [address], [place], [place] [id number] MD Kobe Garnett MD Phone: [phone]
[2020-10-21] MEDS ORDERED: PREDNISONE 10 M10 M1 PO (11:50)
--- NOTE | 2020-11-05 01:06 | PATH ---
[facility] [address] [place] [address] PATHOLOGY RPT PROCEDURE Name: LUISANA BAUTISTA Room #: 459-P DIS IN M.R.#: [id number] Admission: 10/07/20 Date of : 47 Discharge: 10/19/20 Report #: [id number] Path Case #: [id number] Note [facility] Accession Number: [id number] TESTS RESULT FLAG UNITS REF RANGE LAB Clinician Provided Cytology Information No. of containers..01 Other (Miscellaneous) Source: LLL BRUSH TIP DIAGNOSIS: LLL BRUSH TIP NEGATIVE FOR MALIGNANT CELLS. NORMAL BRONCHIAL CELLS ARE PRESENT. Signed out by: Kobe Garnett MD, Pathologist NPI- [id number] Performed by: Ashlyn Flores, Tile Shader ([facility]) Gross description: 1 TP /LCS 10/18/2020 1642 Local FLAG LEGEND: L-Low Normal,H-High Normal,LL-Alert Low,HH-Alert High <-Panic Low,>-Panic High,A-Abnormal,AA-Critical Abnormal Performed at: [address] [place] [address] Kobe Garnett MD, Specimen Comment: A courtesy copy of this report has been sent to [phone] Specimen Comment: [phone], Specimen Comment: Report sent to ,DR DRAKE / DR THORPE Specimen Comment: A duplicate report has been generated due to demographic updates. Performed at: [address], [place], [place] [id number] MD Kobe Garnett MD Phone: [phone]
== END 2020-10-19 15:58 | disposition home health service (06) | DRG 177 ==
LOC: ER 20:09 → 3W 21:59 → 4W 21:59 → EROBS 21:59 → 3W 23:15 → 4W 10-08 16:21
PROVIDERS: Internal Medicine; Nurse Practitioner Family; Physician Assistant; Specialist; ADMIT Internal Medicine; ATTEND Internal Medicine
PROC: 5A09457 Assistance with Respiratory Ventilation, 24-96 Consecutive Hours, Continuous Positive Airway Pressure (ICD-10-PCS; principal; 2020-10-08)
PROC: 5A09357 Assistance with Respiratory Ventilation, Less than 24 Consecutive Hours, Continuous Positive Airway Pressure (ICD-10-PCS; 2020-10-10)
PROC: 5A09357 Assistance with Respiratory Ventilation, Less than 24 Consecutive Hours, Continuous Positive Airway Pressure (ICD-10-PCS; 2020-10-12)
PROC: 5A09357 Assistance with Respiratory Ventilation, Less than 24 Consecutive Hours, Continuous Positive Airway Pressure (ICD-10-PCS; 2020-10-13)
PROC: 5A09357 Assistance with Respiratory Ventilation, Less than 24 Consecutive Hours, Continuous Positive Airway Pressure (ICD-10-PCS; 2020-10-14)
PROC: 5A09357 Assistance with Respiratory Ventilation, Less than 24 Consecutive Hours, Continuous Positive Airway Pressure (ICD-10-PCS; 2020-10-15)
PROC: 5A09357 Assistance with Respiratory Ventilation, Less than 24 Consecutive Hours, Continuous Positive Airway Pressure (ICD-10-PCS; 2020-10-16)
PROC: 5A09357 Assistance with Respiratory Ventilation, Less than 24 Consecutive Hours, Continuous Positive Airway Pressure (ICD-10-PCS; 2020-10-17)
PROC: 0BDJ8ZX Extraction of Left Lower Lung Lobe, Via Natural or Artificial Opening Endoscopic, Diagnostic (ICD-10-PCS; 2020-10-17)
PROC: 0B9C8ZX Drainage of Right Upper Lung Lobe, Via Natural or Artificial Opening Endoscopic, Diagnostic (ICD-10-PCS; 2020-10-17)
PROC: 5A09357 Assistance with Respiratory Ventilation, Less than 24 Consecutive Hours, Continuous Positive Airway Pressure (ICD-10-PCS; 2020-10-18)
PROC: 5A09357 Assistance with Respiratory Ventilation, Less than 24 Consecutive Hours, Continuous Positive Airway Pressure (ICD-10-PCS; 2020-10-19)
DX: J69.0 Pneumonitis due to inhalation of food and vomit (principal); J96.01 Acute respiratory failure with hypoxia; R65.11 Systemic inflammatory response syndrome (SIRS) of non-infectious origin with acute organ dysfunction; J44.0 Chronic obstructive pulmonary disease with (acute) lower respiratory infection; J12.9 Viral pneumonia, unspecified; E87.6 Hypokalemia; R51.9 Headache, unspecified; G47.33 Obstructive sleep apnea (adult) (pediatric); M81.0 Age-related osteoporosis without current pathological fracture; G47.00 Insomnia, unspecified; R53.81 Other malaise; I12.9 Hypertensive chronic kidney disease with stage 1 through stage 4 chronic kidney disease, or unspecified chronic kidney disease; Z20.822 Contact with and (suspected) exposure to COVID-19; E66.01 Morbid (severe) obesity due to excess calories; N18.2 Chronic kidney disease, stage 2 (mild); R63.0 Anorexia; Z87.891 Personal history of nicotine dependence; Z68.38 Body mass index [BMI] 38.0-38.9, adult; Z79.899 Other long term (current) drug therapy
CPT/HCPCS: 10045; 10047; 10879; 62110; 62900; 70005

== ENCOUNTER 2020-10-22 13:39 | Emergency (ER) | payer OTHER ==
[~2020-10-22] VITALS: Ht 165.1 cm; Wt 106.6 kg
[~2020-10-22 13:39] MED LIST changes: +DOXYCYCLINE 10100 M2 PO; +MUCINEX600 MG PO; +PREDNISONE 10 M10 M1 PO; +ZOFRAN ODT4 MG PO
[2020-10-22] MEDS ORDERED: LOTRIMIN ULTRA12 GM TOP (14:37)
[2020-10-22 15:18] VITALS: BP 118/71
== END 2020-10-22 15:33 | disposition home or self-care (01) ==
LOC: ER 13:39
DX: B35.6 Tinea cruris (principal); N76.0 Acute vaginitis; B96.89 Other specified bacterial agents as the cause of diseases classified elsewhere; I10 Essential (primary) hypertension; Z79.899 Other long term (current) drug therapy

== ENCOUNTER 2020-10-28 15:32 | Emergency (ER) | payer OTHER ==
[~2020-10-28] VITALS: Ht 165.1 cm; Wt 104.3 kg
[~2020-10-28 15:32] MED LIST changes: +LOTRIMIN ULTRA12 GM TOP
[2020-10-28 17:26] LABS: ABSOLUTE NEUTROPHILS 3.4 thou/uL (1.4-8.2); BASOPHILS 1.3 % (0.0-2.0); EOSINOPHILS 1.6 % (0.0-3.0); HEMATOCRIT 36.8 % (37.0-47.0); HEMOGLOBIN 12.6 gm/dL (12.0-15.0); MCH 30.9 pg (26.0-34.0); MCHC 34.2 g/dL (28.0-37.0); MCV 90.3 fL (80.0-100.0); MONOCYTES 7.4 % (1.0-8.0); PLATELET COUNT 204 thou/uL (150-400); POLYS 59.7 % (36.0-66.0); RBC 4.08 mil/uL (4.20-5.00); RDW 15.2 % (10.5-14.5); WBC 5.6 thou/uL (4.0-11.0)
[2020-10-28 17:34] LABS: CALCIUM 8.6 mg/dL (8.5-10.1); CREATININE 1.1 mg/dL (0.6-1.0); POTASSIUM 3.7 mmol/L (3.5-5.1)
[2020-10-28 17:41] LABS: PROTIME 11.2 Seconds (9.3-11.4)
[2020-10-28 17:42] LABS: ALBUMIN 2.8 g/dL (3.4-5.0); TOTAL BILIRUBIN 0.3 mg/dL (0.2-1.0)
[2020-10-28] MEDS ORDERED: ULTRAM 50MG TAB50 MG PO (18:15)
[2020-10-28 19:29] VITALS: BP 100/73
== END 2020-10-28 19:29 | disposition home or self-care (01) ==
LOC: ER 15:32
PROVIDERS: Nurse Practitioner
DX: I77.1 Stricture of artery (principal); I10 Essential (primary) hypertension; Z79.899 Other long term (current) drug therapy

== ENCOUNTER 2020-10-31 10:10 | Observation (INO) | payer OTHER ==
[~2020-10-31] VITALS: Ht 165.1 cm; Wt 106.6 kg
[~2020-10-31 10:10] MED LIST changes: -ASPIR 8181 MG PO; -CLOPIDOGREL75 MG PO
[2020-10-31 10:56] VITALS: BP 122/85
[2020-10-31 19:30] VITALS: BP 134/88
[2020-10-31 23:25] VITALS: BP 130/81
[2020-11-01 04:10] VITALS: BP 112/71
[2020-11-01 04:24] LABS: HEMATOCRIT 33.7 % (37.0-47.0); HEMOGLOBIN 11.1 gm/dL (12.0-15.0); MCH 30.1 pg (26.0-34.0); MCHC 32.9 g/dL (28.0-37.0); MCV 91.3 fL (80.0-100.0); RBC 3.7 mil/uL (4.20-5.00); RDW 15.1 % (10.5-14.5); WBC 4.9 thou/uL (4.0-11.0)
[2020-11-01 04:40] LABS: POTASSIUM 3.9 mmol/L (3.5-5.1)
--- NOTE | 2020-11-01 07:08 | NUR ---
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 PATIENT REQUESTED A VAG CREAM. EXPLAINED I WILL NOT BE ABLE TO TALK TO DR. RODRIGUEZ UNTIL MORNING. NURSING CALL DR. RODRIGUEZ DUE TO PATIENT VERY ITCHY VAGINALLY. CALL DR. RODRIGUEZ CELL AND NO ANSWER, CALL AFTER [address] RODRIGUEZ. ORDERS RECIEVED FOR HER ITCHING. THE SECOND DOSE OF HYDROCODONE DID NOT WORK. ON REASSESSMEDT PATIENT GAGED HER PAIN 8/10. 2MG OF MORPHINE WAS GIVEN TO HELP GET HER PAIN BELOW 5/10. ICE PACKS WERE MADE. ONE FOR THE TOP OF HER RIGHT FOOT AND ONE FOR THE BOTTOM.ROUNDING WAS DONE. THE BED IS IN A LOW AND LOCKED POSITION
[2020-11-01] MEDS ORDERED: CLOPIDOGREL75 MG PO (08:36)
[2020-11-01] MEDS ORDERED: ASPIR 8181 MG PO (08:36)
[2020-11-01 09:00] VITALS: BP 95/67
--- NOTE | 2020-11-01 10:08 | NUR ---
PT ON SERVICE [facility] SPOKE WITH JUSTIN PT IS OBSERVATION STATUS AND THEY WILL RESUME CARE AT DISCHARGE.
[2020-11-01 12:32] VITALS: BP 93/50
--- NOTE | 2020-11-01 15:51 | HC ---
[facility] [place] [address] [place] [address] CONSULTATION Name: LUISANA BAUTISTA Room #: [facility] M..#: [id number] Admission: 10/31/20 Attend Phys: Jamey Zhou MD Discharge: Date of : 47 Report #: [id number] THIS REPORT FOR: cc: Candace Thomas Neal A. MD Stephens, Thad A. MD ~ DATE OF SERVICE: 11/01/2020 WOUND CARE CONSULTATION PERSONAL PHYSICIAN: Senthil Galdamez MD CHIEF COMPLAINT: Ischemic right toes. HISTORY OF PRESENT ILLNESS: This is a 74-year-old black female with history of hypertension and a recent hospitalization for pneumonia, who presented through the Emergency Department 2 days ago with ischemic changes to her right first, second and third toes. The patient was then treated yesterday with angiogram per Dr. Zhou with associated patency restored. The patient states even today, her toe pain is actually much less and she feels the toes actually look a whole lot better. The patient denies any actual open wounds. The patient denies any other associated wounds at this time. PAST MEDICAL HISTORY: Significant once again for hypertension, recent history of pneumonia, peripheral arterial disease. CURRENT MEDICATIONS: Multiple, I reviewed the patient's medication list. They do include Plavix. DRUG ALLERGIES: None. SOCIAL HISTORY: The patient does not smoke or drink alcohol. Lives at home independently. FAMILY HISTORY: Not pertinent to current medical condition. REVIEW OF SYSTEMS: CONSTITUTIONAL: The patient denies fevers or chills. NEUROLOGIC: The patient denies numbness, tingling or weakness in arms or legs. EYES: No complaints. ENT: No complaints. CARDIAC: The patient denies chest pain, palpitations, or peripheral edema. RESPIRATORY: The patient denies shortness of breath, cough or wheezes. GASTROINTESTINAL: The patient denies nausea, vomiting, or abdominal pain. GENITOURINARY: The patient denies urgency or frequency. [facility] [address] [place] [address] CONSULTATION Name: LUISANA BAUTISTA Room #: 203-P [facility] M.R.#: [id number] Admission: 10/31/20 Attend Phys: Jamey Zhou MD Discharge: Date of : 47 Report #: [id number] MUSCULOSKELETAL: No complaints. SKIN: There are ischemic changes to the right great second and third toes. PHYSICAL EXAMINATION: VITAL SIGNS: Temperature 36.9, pulse 91, respirations 18, BP 93/50. GENERAL: This is an alert and oriented x 3, pleasant black female who is in absolutely no distress. HEENT: Normocephalic, atraumatic. Mucous membranes are moist. Pupils are round. Sclerae white. NECK: Supple, nontender. LUNGS: Clear. HEART: Regular. ABDOMEN: Soft, nontender. EXTREMITIES: The patient moves all extremities without difficulty. Distal pulses are 2+. Bilateral heels are intact. Evaluation of the right great second and third toes reveals a purplish discoloration and slightly tender, but however, there are no signs of any open ulcerations. No other signs of ischemic changes to the rest of the foot or toes. NEUROLOGIC: Cranial nerves 2-12 grossly intact. Motor and sensory grossly intact. LABORATORY DATA: White count 4.9, hemoglobin 11.1. BUN 16, creatinine 1.0, albumin 2.8. IMPRESSION: 1. Ischemic changes to the right great second and third toes, now improving, status post percutaneous intervention. 2. Peripheral arterial disease. 3. Generalized debility. 4. Protein-calorie malnutrition -- moderate with albumin of 2.8. 5. Hypertension. PLAN: At this time given the fact the patient is already improving after the percutaneous intervention, we will have patient place Betadine to the right great second and third toes daily. We will ask her to follow back up in our clinic over the next 7-10 days. The patient is scheduled for a repeat angiogram in the next couple of days to treat arterial disease in her left leg as well. The patient is to continue all other current medications. The patient is going to maximize her oral protein supplementation for healing. We will follow the patient up as an outpatient. <ELECTRONICALLY SIGNED> By: Josh Vaz MD 11/01/20 1551 [id number] 1303 Josh Vaz MD /nt
[2020-11-01 16:30] VITALS: BP 127/81
--- NOTE | 2020-11-01 19:08 | NUR ---
called dr. pérez results of xray. Orders given MD to place in computer. pt Clr and dim bs. No cough. Tolorating 2L nasal canula.
[2020-11-01 19:47] VITALS: BP 116/52
--- NOTE | 2020-11-01 20:43 | NUR ---
PT SITTING UP IN CHAIR. REMAINS WITH PAINFUL TOES BUT GOOD PEDAL PULSES. PROGRESSING TOWARDS GOALS. L GROIN STABLE.
[2020-11-02 04:39] VITALS: BP 129/72
--- NOTE | 2020-11-02 05:09 | NUR ---
ASSESSMENTS CHARTED, MEDS CHARTED GIVEN. PATIENT DENIED PAIN AT START OF SHIFT. GAVE PAIN MEDS ONCE DURING SHIFT FOR PAIN 05/12. PATIENT UP TO BATHROOM WITH STANDBY ASSIST. FALL PRECAUTIONS IN PLACE. PLAN IS TO DISCHARGE HOME IN THE MORNING.
[2020-11-02 07:35] VITALS: BP 105/70
[2020-11-02 10:11] LABS: HEMATOCRIT 34.7 % (37.0-47.0); HEMOGLOBIN 11.3 gm/dL (12.0-15.0); MCH 29.8 pg (26.0-34.0); MCHC 32.6 g/dL (28.0-37.0); MCV 91.6 fL (80.0-100.0); RBC 3.78 mil/uL (4.20-5.00); WBC 4.5 thou/uL (4.0-11.0)
[2020-11-02 10:17] LABS: CALCIUM 8.7 mg/dL (8.5-10.1); CREATININE 1.1 mg/dL (0.6-1.0)
[2020-11-02 11:07] VITALS: BP 103/59
--- NOTE | 2020-11-02 14:44 | NUR ---
REQUEST FOR OT TO COMPLETE EVALUATION TODAY VERSUS TOMORROW. PLEASE REFER TO OT EVALUATION
[2020-11-02 15:49] VITALS: BP 103/59
[2020-11-02 16:12] VITALS: BP 103/59
--- NOTE | 2020-11-02 16:25 | NUR ---
Spoke with patient. she admits from home. Recent discharge from hospital with home health and new oxygen with [facility]. Patient resides in [facility]. She has walker for home. PCP Dr Galdamez. Plan dc home today. Therapy cleared her for home. Patient ambulating in room. Plan home with HH today.
--- NOTE | 2020-11-02 16:37 | NUR ---
PT DISCHARGING TODAY TO HOME WITH [facility] FAXED DC ORDERS/SUMMARY SPOKE WITH RENA IN INTAKE SHE RECEIVED ORDERS AND WILL ARRANGE VISITS WITH PT.
--- NOTE | 2020-11-02 16:47 | NUR ---
ASSUMED CARE OF PT AT SHIFT CHANGE. ASSESSMENTS CHARTED. MEDS GIVEN PER OCT. PT A&OX4, C/O PAIN TREATED WITH PO MEDS WITH PARTIAL RELIEF. DISCHARGE ORDERS AND INSTRUCTIONS COMPLETE. PLAN FOR PT TO RETURN TOMORROW MORNING TO [facility] FOR OUTPATIENT PROCEDURE. IV AND TELE DC'D. 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
[2020-11-02 16:49] VITALS: BP 103/59
== END 2020-11-02 16:51 | disposition home or self-care (01) ==
LOC: CATH 10:10 → 2N 20:08
PROVIDERS: Nurse Practitioner; ADMIT Nuclear Medicine Nuclear Cardiology; ATTEND Nuclear Medicine Nuclear Cardiology
DX: I70.201 Unspecified atherosclerosis of native arteries of extremities, right leg (principal); J12.82 Pneumonia due to coronavirus disease 2019; I70.1 Atherosclerosis of renal artery; M62.2 Nontraumatic ischemic infarction of muscle; I10 Essential (primary) hypertension; E78.5 Hyperlipidemia, unspecified; D50.9 Iron deficiency anemia, unspecified; Z79.899 Other long term (current) drug therapy

== ENCOUNTER → 2020-10-31 | Outpatient (CLI) | payer OTHER ==
[~2020-10-31] MED LIST changes: +ASPIR 8181 MG PO; +CLOPIDOGREL75 MG PO; +ULTRAM 50MG TAB50 MG PO
== END ==
LOC: SJCVC 09:20
PROVIDERS: ATTEND Nuclear Medicine Nuclear Cardiology
DX: I73.9 Peripheral vascular disease, unspecified (principal); I25.10 Atherosclerotic heart disease of native coronary artery without angina pectoris; I10 Essential (primary) hypertension; J18.9 Pneumonia, unspecified organism; Z87.891 Personal history of nicotine dependence; Z72.89 Other problems related to lifestyle; Z79.899 Other long term (current) drug therapy

== ENCOUNTER → 2020-11-03 | Outpatient (CLI) | payer OTHER ==
[~2020-11-03] VITALS: Ht 165.1 cm; Wt 106.6 kg
[~2020-11-03] MED LIST changes: +ASPIR 8181 MG PO; +CLOPIDOGREL75 MG PO
--- NOTE | 2020-11-03 16:21 | HC ---
[facility] [place] [address] [address] [place] [address] CONSULTATION Name: LUISANA BAUTISTA Room #: REG STEPHANIE Rolle.#: [id number] Admission: 11/03/20 Attend Phys: Jamey Zhou MD Discharge: Date of : 47 Report #: [id number] THIS REPORT FOR: cc: Senthil Galdamez MD, Neal A. MD Stephens, Thad A. MD ~ DATE OF SERVICE: 11/03/2020 WOUND CARE CONSULTATION PERSONAL PHYSICIAN: Senthil Galdamez MD CHIEF COMPLAINT: Ischemic toes. HISTORY OF PRESENT ILLNESS: This is a 74-year-old black female who we saw this past week for ischemia to her right great second and third toes. The patient had an angiogram performed with a percutaneous intervention. The patient is now back to having her left lower extremity angiogram performed. I was asked to come see the patient in CV holding due to the fact the patient has increased redness and swelling of her right foot. The patient states there is pain associated with this. The patient states she saw her primary care, Dr. Galdamez 2 days ago and he actually put on doxycycline for upper respiratory infection. The patient denies any open wounds at this time. The patient denies any other recent illnesses or concerns. The patient states she has noticed the swelling just in the past 2 days. The patient denies fevers or chills. PAST MEDICAL HISTORY: Significant for hypertension, pneumonia, peripheral arterial disease, now status post percutaneous intervention. CURRENT MEDICATIONS: Multiple including Plavix and doxycycline. DRUG ALLERGIES: None. SOCIAL HISTORY: The patient does not smoke or drink alcohol. FAMILY HISTORY: Not pertinent to current medical condition. REVIEW OF SYSTEMS: CONSTITUTIONAL: The patient denies fevers or chills. NEUROLOGIC: The patient denies numbness, tingling, weakness or legs. EYES: No complaints. ENT: No complaints. CARDIAC: The patient complains of right lower extremity swelling, specifically in the foot without chest pain or palpitation. RESPIRATORY: The patient denies shortness of breath. Does have a dry cough. [facility] [address] [place] [address] CONSULTATION Name: LUISANA BAUTISTA Room #: REG STEPHANIE Connolly#: [id number] Admission: 11/03/20 Attend Phys: Jamey Zhou MD Discharge: Date of : 47 Report #: [id number] Denies wheezing. GASTROINTESTINAL: No nausea, vomiting or abdominal pain. GENITOURINARY: The patient denies urgency or frequency. MUSCULOSKELETAL: No complaints. SKIN: The patient complains of a fungal type rash in her groin as well as the ischemic discoloration of the right great second and third toes. PHYSICAL EXAMINATION: VITAL SIGNS: Stable. The patient is afebrile. GENERAL: This is an alert and oriented x 3, pleasant black female who is in absolutely no distress. HEENT: Normocephalic, atraumatic. Mucous membranes are moist. Pupils are round. Sclerae white. NECK: Supple, nontender. LUNGS: Clear. HEART: Regular. ABDOMEN: Soft, nontender. EXTREMITIES: The patient moves all extremities without difficulty. Evaluation of right lower extremity reveals a wound 1-2+ edema of the foot and ankle. There is mild erythema and warmth, without extension up into the calf or thigh region. There is still some darkish discoloration of the great second and third toes without open ulcerations. This ischemic changes; however, is improved from my evaluation 2 days ago. Left lower extremity is without erythema, warmth or swelling. There are no signs of any ischemic changes on the left foot. SKIN: Underneath the abdominal pannus, the patient does have a fungal rash without significant excoriation. NEUROLOGIC: Cranial nerves 2-12 grossly intact. Motor and sensory are grossly intact. LABORATORY VALUES: White count 4.5, hemoglobin 11.3. Sed rate is 25. IMPRESSION: 1. Mild cellulitis, right foot. 2. Ischemic changes to the right great second and third toes, overall improving, status post percutaneous intervention. 3. Peripheral arterial disease with recent percutaneous intervention. 4. Hypertension. 5. Fungal rash of abdominal wall pannus PLAN: I spoke at length with the patient and stated I do agree she has what appears to be a slight cellulitis in her right foot; however, some of the swelling can also be post-reperfusion swelling from the recent intervention. I agree with the doxycycline and she has just started that, so we are going to continue on that. The patient will continue with the doxycycline as prescribed. The patient also has been given 2 doses of Diflucan, of which she has already [address] [address] CONSULTATION Name: LUISANA BAUTISTA Room #: CORNELIO SIMONDarell Connolly#: [id number] Admission: 11/03/20 Attend Phys: Jamey Zhou MD Discharge: Date of : 47 Report #: [id number] taken as well as has an antifungal cream that she can put on the rash, which is appropriate. I will have the patient follow up with me next week and we can evaluate for the right foot cellulitis as well as the rash of the foot. I answered the patient all her questions and the patient once again will see me back in the office within the next week. <ELECTRONICALLY SIGNED> By: Josh Vaz MD 11/03/20 1621 1309 1335 Josh Vaz MD /nt
== END | disposition home or self-care (01) ==
LOC: CATH 08:07
PROVIDERS: ATTEND Nuclear Medicine Nuclear Cardiology
DX: I70.212 Atherosclerosis of native arteries of extremities with intermittent claudication, left leg (principal); M79.605 Pain in left leg; I10 Essential (primary) hypertension; I25.10 Atherosclerotic heart disease of native coronary artery without angina pectoris; E66.9 Obesity, unspecified; Z98.890 Other specified postprocedural states; Z79.899 Other long term (current) drug therapy; Z87.01 Personal history of pneumonia (recurrent)

== ENCOUNTER → 2020-11-17 | Outpatient (CLI) | payer OTHER | LOC: CAT 07:22 | PROVIDERS: ATTEND Family Medicine | DX: R06.02 Shortness of breath (principal); I25.84 Coronary atherosclerosis due to calcified coronary lesion; J18.9 Pneumonia, unspecified organism; R06.00 Dyspnea, unspecified ==

== ENCOUNTER → 2020-11-21 | Outpatient (CLI) | payer OTHER | LOC: SJCVC 10:28 → SJCVCIMAG 10:28 | PROVIDERS: ATTEND Internal Medicine | DX: Z13.220 Encounter for screening for lipoid disorders (principal); I08.1 Rheumatic disorders of both mitral and tricuspid valves; I10 Essential (primary) hypertension; I25.10 Atherosclerotic heart disease of native coronary artery without angina pectoris; Z87.891 Personal history of nicotine dependence; Z72.89 Other problems related to lifestyle; Z79.899 Other long term (current) drug therapy; Z79.82 Long term (current) use of aspirin; Z86.16 Personal history of COVID-19 ==

== ENCOUNTER → 2020-11-29 | Outpatient (CLI) | payer OTHER | LOC: LAB 10:45 | PROVIDERS: ATTEND Pediatrics | DX: R05 Cough (principal); R50.9 Fever, unspecified; R06.02 Shortness of breath; J02.9 Acute pharyngitis, unspecified; Z20.822 Contact with and (suspected) exposure to COVID-19 ==

== ENCOUNTER → 2020-12-26 | Outpatient (CLI) | payer OTHER | LOC: SJCVC 10:15 | PROVIDERS: ATTEND Internal Medicine | DX: R06.02 Shortness of breath (principal); I10 Essential (primary) hypertension; J18.9 Pneumonia, unspecified organism; Z79.82 Long term (current) use of aspirin; Z79.899 Other long term (current) drug therapy; Z87.891 Personal history of nicotine dependence; Z72.89 Other problems related to lifestyle ==

== ENCOUNTER 2021-01-11 11:05 | Emergency (ER) | payer OTHER ==
[~2021-01-11] VITALS: Ht 165.1 cm; Wt 111.1 kg
[2021-01-11 12:11] LABS: ABSOLUTE NEUTROPHILS 2.1 thou/uL (1.4-8.2); BASOPHILS 1.3 % (0.0-2.0); EOSINOPHILS 2.8 % (0.0-3.0); HEMATOCRIT 37.1 % (37.0-47.0); HEMOGLOBIN 12.5 gm/dL (12.0-15.0); LYMPHOCYTES 33.5 % (24.0-44.0); MCH 30.6 pg (26.0-34.0); MCHC 33.7 g/dL (28.0-37.0); MCV 90.7 fL (80.0-100.0); MONOCYTES 11.8 % (1.0-8.0); PLATELET COUNT 247 thou/uL (150-400); POLYS 50.6 % (36.0-66.0); RBC 4.08 mil/uL (4.20-5.00); RDW 16.2 % (10.5-14.5); WBC 4.2 thou/uL (4.0-11.0)
[2021-01-11 12:19] LABS: ANION GAP 8 mmol/L (7-16); BUN 20 mg/dL (7-18); CALCIUM 9.7 mg/dL (8.5-10.1); CHLORIDE 108 mmol/L (98-107); CO2 29 mmol/L (21-32); CREATININE 1.1 mg/dL (0.6-1.0); GLUCOSE 99 mg/dL (74-106); POTASSIUM 3.8 mmol/L (3.5-5.1); SODIUM 145 mmol/L (136-145)
[2021-01-11 12:30] LABS: TROPONIN-I <0.06 ng/mL (<0.06)
--- NOTE | 2021-01-11 12:32 | EKG ---
[facility] [address] [facility] [place] [address] ELECTROCARDIOGRAM REPORT Name: LUISANA BAUTISTA [facility] [id number] Admission: 01/11/21 Attend Phys: Discharge: Date of : 47 Report #: [id number] [facility] ED Test Date: 2021-01-11 Test Time: 11:11:02 Pat Name: LUISANA BAUTISTA Department: Room: Gender: F Automatic Packer Operator: JANES : 1945 Requested By: Reynaldo Flynn Order Number: [id number] MD: Aaron Artis Measurements Intervals [place] Rate: 89 P: 47 NE: 159 QRS: -8 QRSD: 89 T: -2 QT: 364 QTc: 443 Interpretive Statements Sinus rhythm Probable left atrial enlargement Abnormal R-wave progression, late transition Probable left ventricular hypertrophy Compared to ECG 10/07/2020 20:44:04 ST (T wave) deviation no longer present Electronically Signed On 01-11-2021 12:32:30 CDT by Aaron Artis [email or web address] <ELECTRONICALLY SIGNED> By: Aaron Artis MD, [facility] 01/11/21 1232 1111 1111 Aaron Artis MD, [facility] /EPI
[2021-01-11 13:43] LABS: URINE BILIRUBIN NEGATIVE (Negative); URINE BLOOD NEGATIVE (Negative); URINE CLARITY CLEAR; URINE COLOR YELLOW; URINE GLUCOSE-RANDOM* NEGATIVE (Negative); URINE KETONES NEGATIVE (Negative); URINE LEUKOCYTES-REFLEX NEGATIVE (Negative); URINE NITRITE-REFLEX NEGATIVE (Negative); URINE PROTEIN (DIPSTICK) NEGATIVE (Negative); URINE SPECIFIC GRAVITY 1.025 (1.005-1.035); URINE UROBILINOGEN 0.2 E.U./dl (0.2-1.0)
[2021-01-11 14:07] VITALS: BP 122/62
== END 2021-01-11 14:07 | disposition home or self-care (01) ==
LOC: ER 11:05
PROVIDERS: Nurse Practitioner
DX: R22.41 Localized swelling, mass and lump, right lower limb (principal); R22.42 Localized swelling, mass and lump, left lower limb; R06.00 Dyspnea, unspecified; I10 Essential (primary) hypertension; M25.571 Pain in right ankle and joints of right foot; M25.572 Pain in left ankle and joints of left foot

== ENCOUNTER → 2021-01-11 | Outpatient (CLI) | payer OTHER | LOC: SJCVCIMAG 13:08 | PROVIDERS: ATTEND Nuclear Medicine Nuclear Cardiology | DX: I70.203 Unspecified atherosclerosis of native arteries of extremities, bilateral legs (principal); I25.10 Atherosclerotic heart disease of native coronary artery without angina pectoris; I10 Essential (primary) hypertension; Z95.820 Peripheral vascular angioplasty status with implants and grafts; Z79.82 Long term (current) use of aspirin; Z79.899 Other long term (current) drug therapy; Z87.891 Personal history of nicotine dependence ==

== ENCOUNTER → 2021-02-10 | Outpatient (CLI) | payer OTHER | LOC: SJCVC 14:31 | PROVIDERS: ATTEND Internal Medicine | DX: R94.31 Abnormal electrocardiogram [ECG] [EKG] (principal); I11.0 Hypertensive heart disease with heart failure; I50.813 Acute on chronic right heart failure; I50.32 Chronic diastolic (congestive) heart failure; J96.11 Chronic respiratory failure with hypoxia; E78.5 Hyperlipidemia, unspecified; I73.9 Peripheral vascular disease, unspecified; R00.2 Palpitations; I48.0 Paroxysmal atrial fibrillation; J12.82 Pneumonia due to coronavirus disease 2019; U07.1 COVID-19; Z79.82 Long term (current) use of aspirin; Z79.899 Other long term (current) drug therapy; Z87.891 Personal history of nicotine dependence ==

== ENCOUNTER → 2021-03-10 | Outpatient (CLI) | payer OTHER | LOC: SJCVC 15:07 | PROVIDERS: ATTEND Internal Medicine | DX: I13.0 Hypertensive heart and chronic kidney disease with heart failure and stage 1 through stage 4 chronic kidney disease, or unspecified chronic kidney disease (principal); I50.32 Chronic diastolic (congestive) heart failure; N18.31 Chronic kidney disease, stage 3a; J96.11 Chronic respiratory failure with hypoxia; I48.0 Paroxysmal atrial fibrillation; E78.5 Hyperlipidemia, unspecified; I25.10 Atherosclerotic heart disease of native coronary artery without angina pectoris; I73.9 Peripheral vascular disease, unspecified; U07.1 COVID-19; J12.82 Pneumonia due to coronavirus disease 2019; Z95.828 Presence of other vascular implants and grafts; Z79.82 Long term (current) use of aspirin; Z79.899 Other long term (current) drug therapy; Z87.891 Personal history of nicotine dependence ==

== ENCOUNTER → 2021-04-27 | Outpatient (CLI) | payer OTHER | LOC: SJCVC 11:09 | PROVIDERS: ATTEND Internal Medicine | DX: I48.0 Paroxysmal atrial fibrillation (principal); I11.0 Hypertensive heart disease with heart failure; I50.32 Chronic diastolic (congestive) heart failure; J12.82 Pneumonia due to coronavirus disease 2019; E78.5 Hyperlipidemia, unspecified; J96.11 Chronic respiratory failure with hypoxia; Z86.16 Personal history of COVID-19; Z79.82 Long term (current) use of aspirin; Z79.899 Other long term (current) drug therapy; Z72.89 Other problems related to lifestyle; Z87.891 Personal history of nicotine dependence ==

== ENCOUNTER → 2021-05-05 | Outpatient (CLI) | payer OTHER ==
[2021-05-05 10:31] LABS: CREATININE 1.2 mg/dL (0.6-1.0)
== END ==
LOC: CAT 09:33 → LAB 09:33
PROVIDERS: ATTEND Family Medicine
DX: J98.4 Other disorders of lung (principal); I50.813 Acute on chronic right heart failure; J12.82 Pneumonia due to coronavirus disease 2019; U07.1 COVID-19

== ENCOUNTER → 2021-08-29 | Outpatient (CLI) | payer OTHER | LOC: SJCVCIMAG 09:07 | PROVIDERS: ATTEND Nuclear Medicine Nuclear Cardiology | DX: I65.23 Occlusion and stenosis of bilateral carotid arteries (principal); I70.203 Unspecified atherosclerosis of native arteries of extremities, bilateral legs; I77.9 Disorder of arteries and arterioles, unspecified; I25.10 Atherosclerotic heart disease of native coronary artery without angina pectoris; I11.0 Hypertensive heart disease with heart failure; I50.32 Chronic diastolic (congestive) heart failure; I48.0 Paroxysmal atrial fibrillation; J96.11 Chronic respiratory failure with hypoxia; Z86.16 Personal history of COVID-19; Z87.891 Personal history of nicotine dependence; Z72.89 Other problems related to lifestyle; Z79.82 Long term (current) use of aspirin; Z79.899 Other long term (current) drug therapy ==